=== PATIENT | female | born 1990 | race Caucasian/White ===

== ENCOUNTER → 2022-03-25 | Emergency (ER) | payer OTHER ==
[~2022-03-25] MED LIST: Iopamidol 300 61% 100 ML VIAL FS ONE; Ketorolac Tromethamine 30 MG/ML VIAL ONE; Morphine 4 MG/ML VIAL ONE; Ondansetron PF 4 MG/2 ML Vial ONE
[2022-03-25 16:48] LABS: #Eosinphils 0.1 10x3/uL (0.0-0.5); #Monocytes 0.6 10x3/uL (0.0-1.1); #Neutrophils 7.7 10x3/uL (1.5-8.4); %Basophils 0.4 % (0.0-2.0); %Eosinophils 1.2 % (0.0-6.0); %Lymphocytes 17.7 % (18.0-47.0); %Monocytes 5.4 % (0.0-10.0); %Neutrophils 74.9 % (40.0-75.0); Hemoglobin 13.2 g/dL (12.0-15.5); Mean Corpuscular Volume 88.2 fl (81.6-98.3); Mean Platelet Volume 9.3 fl (7.4-10.4); Platelet Count 307 10x3/uL (150-450); White Blood Cell (WBC) Count 10.3 10x3/uL (3.5-10.5)
[2022-03-25 17:00] LABS: BHCG - Serum Negative (NEGATIVE); Pregs Control Background? CLEAR/WHITE (CLR/WHITE); Pregs Control Bar Appear? YES (CONTROL BAR)
[2022-03-25 17:06] LABS: ALT (SGPT) 26 U/L (8-55); AST (SGOT) 17 U/L (5-34); Albumin 4.2 g/dL (3.5-5.0); Alkaline Phosphatase 73 U/L (40-110); Anion Gap 11 mmol/L (10-20); BUN (Urea Nitrogen) 14 mg/dL (7.0-18.7); Bilirubin, Total 0.5 mg/dL (0.2-1.2); Calc. Creatinine Clearance 0 mL/min (70-130); Calcium 9.3 mg/dL (7.8-10.44); Carbon Dioxide 23 mmol/L (22-29); Chloride 107 mmol/L (98-107); Estimated GFR 95; Globulin 4.1 g/dL (2.4-3.5); Glucose 96 mg/dL (70-105); Lipase 40 U/L (8-78); Potassium 3.6 mmol/L (3.5-5.1); Protein, Total 8.3 g/dL (6.0-8.3); Sodium 137 mmol/L (136-145)
== END ==
LOC: CSHERS 16:10
DX: N93.9 Abnormal uterine and vaginal bleeding, unspecified (principal)
CPT/HCPCS: 36415; 74177; 76856; 80053; 83605; 83690; 84703; 85025; 86850; 86900; 86901; 96361; 96374; 96375; J1885; J2270; J2405; Q9967